=== PATIENT | female | born 1980 | race Two or more races ===

== ENCOUNTER 2018-10-24 09:44 | Outpatient (CLI) | payer OTHER | END 2018-10-24 09:57 | disposition home or self-care (01) | LOC: MAMO-SONO 09:44 | DX: N63.31 Unspecified lump in axillary tail of the right breast (principal); Z12.31 Encounter for screening mammogram for malignant neoplasm of breast ==

== ENCOUNTER → 2018-10-29 | Outpatient (CLI) | payer OTHER | END | disposition home or self-care (01) | LOC: MAMO-SONO 07:45 | DX: N63.31 Unspecified lump in axillary tail of the right breast (principal); Z12.31 Encounter for screening mammogram for malignant neoplasm of breast; Z12.39 Encounter for other screening for malignant neoplasm of breast ==

== ENCOUNTER 2018-10-31 09:22 | Outpatient (CLI) | payer OTHER | END 2018-10-31 11:09 | disposition home or self-care (01) | LOC: LAB 09:22 | DX: R73.09 Other abnormal glucose (principal); R63.4 Abnormal weight loss; Z00.01 Encounter for general adult medical examination with abnormal findings; Z13.220 Encounter for screening for lipoid disorders; Z13.29 Encounter for screening for other suspected endocrine disorder ==